=== PATIENT | female | born 1945 | race Caucasian/White ===

== ENCOUNTER 2016-09-23 21:31 | Emergency (ER) | payer MEDICARE, OTHER ==
[2016-09-23 21:52] VITALS: TEMP 99.2; O2SAT 96
[2016-09-23] MEDS ORDERED: CHLORHEXIDINE GLUCONATE 4 % 15 ML UD TOP ONE (21:54)
[2016-09-23] MEDS ORDERED: LIDOCAINE 1% 10 ML VIAL INJ ONE ×2 (21:55→22:43)
--- NOTE | 2016-09-23 22:34 | ED.PDOC ---
History of Present Illness - General Chief Complaint: Laceration Stated Complaint: laceration Time Seen by Provider: 09/23/16 22:32 Source: patient, RN notes reviewed, Vital Signs reviewed, family Exam Limitations: no limitations - History of Present Illness Initial Comments: Patient was putting her walker away and as she turned she lost her balance and fell. She has a laceration on her R forearm and a skin tear in her R antecubital fossa. She does report some L knee pain but is able to walk without difficulty. Denies LOC or head injury. EMS went out to her house but she came in by private vehicle. Timing/Duration: just prior to arrival Severity: moderate Location: extremities Improving Factors: rest, other - compression Associated Symptoms: denies symptoms Allergies/Adverse Reactions: Allergies Sulfa Drugs Allergy (Verified 09/03/13 10:08) Home Medications: Ambulatory Orders [id number]-[id number] [Isometheptene/Dichloralph] 1 cap PO PRN PRN Ascorbic Acid [Vitamin C] 1,000 mg PO BID 09/03/13 Aspirin [Aspirin EC] 81 mg PO BEDTIME 09/03/13 B-Complex Vitamins [Vitamin B Complex] 1 tab PO DAILY 09/03/13 Calcium Carbonate [Caltrate 600] 1,500 mg PO TID 09/03/13 Clopidogrel Bisulfate [Plavix] 75 mg PO NOON 09/03/13 Conjugated Estrogens [Premarin] 0.625 mg PO DAILY 09/03/13 Denosumab [Prolia] 60 mg SC Q6M 09/03/13 Dextromet/Guaifenesin 600/30 T [Mucinex Dm 600/30MG] 1 tab PO DAILY 09/03/13 Doxepin HCl [Sinequan Cap] 60 mg PO DAILY 09/03/13 Eletriptan Hydrobromide [Relpax] 40 mg PO PRN PRN 09/03/13 Esomeprazole Magnesium [Nexium] 40 mg PO DAILY 09/03/13 Fexofenadine HCl [Corrie Allergy] 180 mg PO BEDTIME 09/03/13 Furosemide [Lasix] 20 mg PO DAILY 09/03/13 Gabapentin [Neurontin] 800 mg PO TID 09/03/13 HYDROcodone 10MG/APAP 325MG [[place] 10/325] 1 tab PO Q6H PRN #10 tab 09/03/13 HYDROcodone 7.5MG/APAP 325MG [[place] 7.5/325] 1 tab PO Q6H PRN 09/03/13 Hydroxychloroquine [Plaquenil] 200 mg PO BID 09/03/13 Magnesium 250 mg PO DAILY 09/03/13 Methotrexate Sodium 0.6 ml SC WKLY 09/03/13 Milnacipran HCl [Savella] 50 mg PO NOON 09/03/13 Misoprostol 200 mcg PO QID 09/03/13 Multiple Vitamin [Multivitamins] 1 cap PO NOON 09/03/13 Nabumetone [Relafen] 750 mg PO DAILY 09/03/13 Nutritional Supplements [[place] Oil] 1,000 mg PO BID 09/03/13 Polyethylene Glycol 3350 [Miralax] 17 gm PO NOON 09/03/13 Potassium Chloride [K-Tab] 20 meq PO NOON 09/03/13 Prednisone [Fermín] 6 mg PO DAILY 09/03/13 Promethazine Tab [Phenergan Tablet] 25 mg PO .Q4H PRN 09/03/13 Rituximab [Rituxan] 100 mg IV Q6M 09/03/13 Tramadol HCl [Ultram] 50 mg PO Q6H PRN 09/03/13 Triamcinolone 0.1% Oint [Kenalog 0.1% Ointment] 15 gm TOP Q6HR 09/03/13 Valacyclovir HCl 1 gm PO TID #21 tab 09/03/13 Zolmitriptan [Zomig] 5 mg SL PRN PRN 09/03/13 l-Methylfolate W/ Algae-Vitami [Metanx 3-90.314-2-35 mg] 1 cap PO DAILY Review of Systems - Review of Systems Constitutional: States: no symptoms reported Respiratory: States: no symptoms reported Cardiology: States: no symptoms reported Gastrointestinal/Abdominal: States: no symptoms reported Musculoskeletal: States: joint pain - L knee Skin: States: see HPI Neurological: States: no symptoms reported All other Systems: No Change from Baseline Past Medical History (General) - Patient Medical History Hx Seizures: Yes Hx Pacemaker: No Hx Diabetes: No Hx Renal Disease: Yes Hx Cancer: No Hx MRSA: No Surgical History: cholecystectomy, Hysterectomy - Vaccination History Hx Tetanus, Diphtheria Vaccination: No Hx Pneumococcal Vaccination: Yes - Female History Patient is a Female of Child Bearing Age (10 -59 yrs old): No Family Medical History - Family History Mother Living Status: Hx Family Cancer: Yes Physical Exam - Physical Exam General Appearance: Alert, Comfortable, No apparent distress, Well Developed, Well Groomed, Well Hydrated, Well Nourished Cardiovascular/Chest: normal peripheral pulses Respiratory: no respiratory distress Extremity: normal range of motion, swelling - L anterior knee: mild swelling, bruising and tenderness. FROM. Neurologic: no motor/sensory deficits, alert, normal mood/affect, oriented x 3 Skin Exam: warm/dry, normal color Skin Problem Location: upper extremities Skin Character: other - 7cm laceration R volar forearm Comments: Vital Signs 09/23/16 21:48 Temperature 99.2 F Pulse Rate [ 94 H Right] Respiratory 20 Rate Blood Pressure 183/87 [Left Arm] O2 Sat by Pulse 96 Oximetry Procedures - Laceration/Wound Repair Right Volar Wrist Wound Length (cm): 7 Wound's Depth, Shape: superficial, linear Wound Explored: no foreign body removed Irrigated w/ Saline (cc's): 250 Betadine Prep?: No - Cleaned with Hibiclens Anesthesia: 1% Lidocaine Volume Anesthetic (cc's): 3.5 Wound Debrided: minimal Wound Repaired With: sutures Suture Size/Type: 4:0, prolene Number of Sutures: 8 Layer Closure?: No Sterile Dressing Applied?: Yes - Antibiotic ointment and dressing applied by nurse Splint Applied?: No Sling Applied?: No Departure - Departure Clinical Impression: Laceration Time of Disposition: 22:41 Disposition: Discharge to Home or Self Care Condition: Good Departure Forms: ED Discharge - Pt. Copy, Patient Portal Self Enrollment Instructions: DI for Laceration Repair -- Simple Diet: resume usual diet Activity: increase activity as tolerated Referrals: Luis Malcolm MD [Primary Care Provider] - 1-2 Weeks Home Medications: Ambulatory Orders [id number]-[id number] [Isometheptene/Dichloralph] 1 cap PO PRN PRN Ascorbic Acid [Vitamin C] 1,000 mg PO BID 09/03/13 Aspirin [Aspirin EC] 81 mg PO BEDTIME 09/03/13 B-Complex Vitamins [Vitamin B Complex] 1 tab PO DAILY 09/03/13 Calcium Carbonate [Caltrate 600] 1,500 mg PO TID 09/03/13 Clopidogrel Bisulfate [Plavix] 75 mg PO NOON 09/03/13 Conjugated Estrogens [Premarin] 0.625 mg PO DAILY 09/03/13 Denosumab [Prolia] 60 mg SC Q6M 09/03/13 Dextromet/Guaifenesin 600/30 T [Mucinex Dm 600/30MG] 1 tab PO DAILY 09/03/13 Doxepin HCl [Sinequan Cap] 60 mg PO DAILY 09/03/13 Eletriptan Hydrobromide [Relpax] 40 mg PO PRN PRN 09/03/13 Esomeprazole Magnesium [Nexium] 40 mg PO DAILY 09/03/13 Fexofenadine HCl [Corrie Allergy] 180 mg PO BEDTIME 09/03/13 Furosemide [Lasix] 20 mg PO DAILY 09/03/13 Gabapentin [Neurontin] 800 mg PO TID 09/03/13 HYDROcodone 10MG/APAP 325MG [[place] 10/325] 1 tab PO Q6H PRN #10 tab 09/03/13 HYDROcodone 7.5MG/APAP 325MG [[place] 7.5/325] 1 tab PO Q6H PRN 09/03/13 Hydroxychloroquine [Plaquenil] 200 mg PO BID 09/03/13 Magnesium 250 mg PO DAILY 09/03/13 Methotrexate Sodium 0.6 ml SC WKLY 09/03/13 Milnacipran HCl [Savella] 50 mg PO NOON 09/03/13 Misoprostol 200 mcg PO QID 09/03/13 Multiple Vitamin [Multivitamins] 1 cap PO NOON 09/03/13 Nabumetone [Relafen] 750 mg PO DAILY 09/03/13 Nutritional Supplements [[place] Oil] 1,000 mg PO BID 09/03/13 Polyethylene Glycol 3350 [Miralax] 17 gm PO NOON 09/03/13 Potassium Chloride [K-Tab] 20 meq PO NOON 09/03/13 Prednisone [Fermín] 6 mg PO DAILY 09/03/13 Promethazine Tab [Phenergan Tablet] 25 mg PO .Q4H PRN 09/03/13 Rituximab [Rituxan] 100 mg IV Q6M 09/03/13 Tramadol HCl [Ultram] 50 mg PO Q6H PRN 09/03/13 Triamcinolone 0.1% Oint [Kenalog 0.1% Ointment] 15 gm TOP Q6HR 09/03/13 Valacyclovir HCl 1 gm PO TID #21 tab 09/03/13 Zolmitriptan [Zomig] 5 mg SL PRN PRN 09/03/13 l-Methylfolate W/ Algae-Vitami [Metanx 3-90.314-2-35 mg] 1 cap PO DAILY Additional Instructions: Keep wound completely dry for 48 hours then can let water run over it but no soaking or scrubbing until sutures are out. Sutures need to be removed in 7-10 days. Apply antibiotic ointment twice daily.
[2016-09-23] MEDS ORDERED: NEOMYCIN-BACITRACIN-POLYMYXIN 0.9 GM UD TOP ONE ×2 (22:38→22:43)
[2016-09-23 23:07] VITALS: BP 176/88
== END 2016-09-23 23:07 | disposition home or self-care (01) ==
LOC: ER 21:31
DX: S61.511A Laceration without foreign body of right wrist, initial encounter (principal); N28.9 Disorder of kidney and ureter, unspecified; Z79.82 Long term (current) use of aspirin; Z79.899 Other long term (current) drug therapy; Z79.02 Long term (current) use of antithrombotics/antiplatelets; Z88.2 Allergy status to sulfonamides; W19.XXXA Unspecified fall, initial encounter; Y92.008 Other place in unspecified non-institutional (private) residence as the place of occurrence of the external cause

== ENCOUNTER → 2016-11-26 | Outpatient (CLI) | payer MEDICARE, OTHER ==
--- NOTE | 2016-11-28 09:14 | MRI ---
EXAM DESCRIPTION: MRI left knee CLINICAL HISTORY: Medial meniscal tear. Left knee pain and swelling COMPARISON: None. TECHNIQUE: Multiplanar, multisequence MR images of the left knee FINDINGS: Tear of the posterior horn and body lateral meniscus. Posterior horn tear is primarily oblique involving the inferior articular surface. High-grade near complete transection at the posterior horn/body junction with complex tear affecting the superior and inferior articular surfaces of the body. Subluxation into the superior lateral gutter. Tear extends up to the free edge and superior articular surface of the junction with the anterior horn. Lateral femorotibial high-grade chondrosis. Full-thickness chondral loss weightbearing condyle over about 15 x 13 mm. Full-thickness chondral loss over the posterior half of the lateral tibia. Minimal subchondral edema Degenerative intrameniscal signal medial meniscus without extension to an articular surface to diagnose tear. Grade 2 medial femorotibial chondrosis No high-grade patellofemoral chondrosis or focal osteochondral lesion ACL, PCL, MCL and fibular collateral ligaments are intact Biceps femoris, popliteus and iliotibial band tendons are normal. Patellar and quadriceps tendons and tendons of the posterior medial knee are intact Moderate to large joint effusion without synovitis or intra-articular body Magnetic susceptibility artifact from an intramedullary syed in the distal femur seen on the edge of the [id number] IMPRESSION: Complex tear posterior horn and body lateral meniscus with associated grade 4 lateral femorotibial chondrosis Electronically signed by: Robbie Singer MD 11/28/2016 9:12 AM CDT
== END ==
LOC: MRI 15:05
PROVIDERS: ATTEND Family Medicine
DX: S83.242D Other tear of medial meniscus, current injury, left knee, subsequent encounter (principal); S83.282D Other tear of lateral meniscus, current injury, left knee, subsequent encounter

== ENCOUNTER → 2016-12-10 | Outpatient (CLI) | payer MEDICARE, OTHER ==
--- NOTE | 2016-12-10 11:55 | RAD ---
EXAM DESCRIPTION: Pelvis CLINICAL HISTORY: PAIN IN LEFT HIP COMPARISON: None. TECHNIQUE: AP pelvis and AP left femur FINDINGS: Surgical clips are observed in the midline of the pelvis. The pelvis is intact. A long stem gamma nail is observed in the left femur. No recurrent fracturing is detected. IMPRESSION: A long stem gamma nail is seen in place appearing a prior fracture of the left femur. Exam is otherwise unremarkable. Electronically signed by: Thomas Coats MD 12/10/2016 11:54 AM CDT
== END | disposition home or self-care (01) ==
LOC: RAD 08:08
PROVIDERS: ATTEND Orthopaedic Surgery
DX: M25.552 Pain in left hip (principal)

== ENCOUNTER → 2017-05-16 | Outpatient (CLI) | payer MEDICARE, OTHER | LOC: GMAJ 11:56 | PROVIDERS: ATTEND Family Medicine | DX: Z79.899 Other long term (current) drug therapy (principal); M10.9 Gout, unspecified ==